=== PATIENT | male | born 1960 | race Caucasian/White ===

== ENCOUNTER 2017-02-22 21:01 | Emergency (ER) | payer MEDICAID ==
[~2017-02-22] VITALS: Ht 165.1 cm; Wt 77.3 kg
[~2017-02-22 21:01] MED LIST: HYDR-4446 PO; METF500T PO
[2017-02-22 21:16] VITALS: BP 151/89
--- NOTE | 2017-02-23 00:11 | NUR ---
PATIENT TAKEN TO BED 3
--- NOTE | 2017-02-23 00:19 | NUR ---
56Y M BIB FAMILY C/O RT. FLANK PAIN WITH N/V X 1 WK. HX. HTN, DM., LAP CHOLYCYSTECTOMY 1 YR AGO. PT DENIES ANY DIARHEA. PT BREATHING IS UNLABORED AND CLEAR BILAT. PT AAOX4. 9/10 PAIN .
--- NOTE | 2017-02-23 00:48 | NUR ---
Patient being evaluated by physician DR FERNANDO at bedside.
[2017-02-23 01:50] LABS: BASOPHILS # (AUTO) 0.1 K/uL (0.00-0.22); BASOPHILS % (AUTO) 1.4 % (0.0-2.0); EOSINOPHILS # (AUTO) 0.2 K/uL (0-0.4); EOSINOPHILS % (AUTO) 3.1 % (0.0-4.0); HEMOGLOBIN 11.4 g/dL (12.0-18.0); LYMPHOCYTES # (AUTO) 1.7 K/uL (2.0-11.5); LYMPHOCYTES % (AUTO) 34.2 % (20.5-51.1); MEAN CORPUSCULAR HEMOGLOBIN 29 pg (27-31); MEAN CORPUSCULAR HGB CONC 33 g/dL (33-37); MEAN CORPUSCULAR VOLUME 87 fL (80-94); MONOCYTES # (AUTO) 0.5 K/uL (0.8-1.0); MONOCYTES % (AUTO) 9.5 % (1.7-9.3); NEUTROPHILS # (AUTO) 2.6 K/uL (1.8-7.7); NEUTROPHILS % (AUTO) 51.8 % (42.2-75.2); PLATELET COUNT (AUTO) 167 K/uL (140-450); RED BLOOD CELL COUNT(AUTO) 3.92 MIL/uL (4.20-6.10); RED CELL DISTRIBUTION WIDTH 13.1 % (11.6-13.7); WHITE BLOOD COUNT (AUTO) 5.1 K/uL (4.8-10.8)
[2017-02-23 02:09] LABS: ALBUMIN 3.5 g/dL (3.4-5.0); ANION GAP 11.4 (8-16); CALCIUM 8.7 mg/dL (8.5-10.1); CARBON DIOXIDE 26.2 mmol/L (21-32); CREATININE 1.2 mg/dL (0.7-1.3); POTASSIUM 4.6 mmol/L (3.5-5.1); TOTAL BILIRUBIN 0.3 mg/dL (0.0-1.0); TOTAL PROTEIN, SERUM 6.5 g/dL (6.4-8.2)
[2017-02-23] MEDS ORDERED: HYDROmorphone 1 MG/ML AMP IVP ONE (03:15)
[2017-02-23] MEDS: oxyCODONE/APAP 5/325 MG 1 TAB TAB PO ONE (03:30)
[2017-02-23 03:40] VITALS: BP 143/74
--- NOTE | 2017-02-23 03:40 | NUR ---
Patient discharged with v/s stable. Written and verbal after care instructions given and explained. Patient alert, oriented and verbalized understanding of instructions. Ambulatory with steady gait. All questions addressed prior to discharge. ID band removed. Patient advised to follow up with PMD. Rx of [place] and Motrin given. Patient educated on indication of medication including possible reaction and side effects. Opportunity to ask questions provided and answered.
== END 2017-02-23 03:40 | disposition home or self-care (01) ==
LOC: MED 21:01
DX: K59.00 Constipation, unspecified (principal); N40.0 Benign prostatic hyperplasia without lower urinary tract symptoms; E11.9 Type 2 diabetes mellitus without complications; I10 Essential (primary) hypertension; Z90.49 Acquired absence of other specified parts of digestive tract; Z79.84 Long term (current) use of oral hypoglycemic drugs; Z79.899 Other long term (current) drug therapy
CPT/HCPCS: 36415; 80053; 81002; 82948; 85025; 99285

== ENCOUNTER 2018-06-16 18:16 | Emergency (ER) | payer MEDICAID ==
[~2018-06-16] VITALS: Ht 167.6 cm; Wt 75.3 kg
[~2018-06-16 18:16] MED LIST changes: +ACET-8386 PO; -HYDR-4446 PO
[2018-06-16 18:36] VITALS: BP 151/85
[2018-06-16] MEDS: KETOROLAC 30 MG/ML VIAL IVP ONE (19:47)
[2018-06-16] MEDS: ONDANSETRON 4 MG/2 ML VIAL IVP ONE (19:48)
[2018-06-16 20:05] LABS: APPEARANCE,URINE CLEAR (CLEAR); BILIRUBIN,URINE NEGATIVE (NEGATIVE); BLOOD, URINE NEGATIVE (NEGATIVE); COLOR,URINE YELLOW (YELLOW); LEUKOCYTE ESTERASE ,URINE NEGATIVE (NEGATIVE); NITRITE, URINE NEGATIVE (NEGATIVE); PH,URINE 6.5 (5.0-9.0); UGLUCOSE >=1000 (NEGATIVE)
[2018-06-16 20:25] LABS: BASOPHILS % (AUTO) 0.4 % (0.0-2.0); EOSINOPHILS # (AUTO) 0.1 K/uL (0-0.4); EOSINOPHILS % (AUTO) 2.1 % (0.0-4.0); HEMATOCRIT 37.9 % (36-52); LYMPHOCYTES # (AUTO) 1.5 K/uL (2.0-11.5); LYMPHOCYTES % (AUTO) 29.9 % (20.5-51.1); MEAN CORPUSCULAR HEMOGLOBIN 30 pg (27-31); MEAN CORPUSCULAR HGB CONC 34 g/dL (33-37); MONOCYTES # (AUTO) 0.4 K/uL (0.8-1.0); MONOCYTES % (AUTO) 8.9 % (1.7-9.3); NEUTROPHILS # (AUTO) 2.9 K/uL (1.8-7.7); NEUTROPHILS % (AUTO) 58.7 % (42.2-75.2); PLATELET COUNT (AUTO) 157 K/uL (140-450); RED BLOOD CELL COUNT(AUTO) 4.31 MIL/uL (4.20-6.10); RED CELL DISTRIBUTION WIDTH 14.1 % (11.6-13.7); WHITE BLOOD COUNT (AUTO) 4.9 K/uL (4.8-10.8)
[2018-06-16 20:30] LABS: ANION GAP 14.8 (8-16); CARBON DIOXIDE 24.5 mmol/L (21-32); POTASSIUM 4.3 mmol/L (3.5-5.1)
[2018-06-16 20:32] LABS: CREATININE 1.2 mg/dL (0.7-1.3); TOTAL BILIRUBIN 0.3 mg/dL (0.0-1.0)
[2018-06-16 20:33] LABS: ALBUMIN 3.4 g/dL (3.4-5.0)
[2018-06-16] MEDS: NACL 0.9% 1,000 ML IV ONE (20:54)
[2018-06-16] MEDS: INSULIN REGULAR, HUMAN 100 UNIT/ML VIAL SUBQ ONE (20:55)
[2018-06-16 22:03] VITALS: BP 148/87
== END 2018-06-16 22:03 | disposition home or self-care (01) ==
LOC: MED 18:16
DX: R11.0 Nausea (principal); R10.9 Unspecified abdominal pain; E11.9 Type 2 diabetes mellitus without complications; I10 Essential (primary) hypertension; Z90.49 Acquired absence of other specified parts of digestive tract; Z79.84 Long term (current) use of oral hypoglycemic drugs
CPT/HCPCS: 36415; 74176; 80053; 81003; 82948; 83690; 85025; 96372; 96374; 96375; 99284; J1815; J1885; J2405; 96361; J7030

== ENCOUNTER 2019-04-11 15:06 | Emergency (ER) | payer SELFPAY ==
[~2019-04-11] VITALS: Ht 165.1 cm; Wt 74.1 kg
[2019-04-11 15:22] VITALS: BP 112/78
--- NOTE | 2019-04-11 16:24 | NUR ---
PATIENT AMBULATED TO ER BED 8
--- NOTE | 2019-04-11 16:52 | NUR ---
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
--- NOTE | 2019-04-11 17:08 | NUR ---
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
[2019-04-11] MEDS ORDERED: KETOROLAC 30 MG/ML VIAL IVP ONE (18:20)
[2019-04-11] MEDS ORDERED: NACL 0.9% 1,000 ML IV ONE (18:20)
[2019-04-11] MEDS ORDERED: KETOROLAC 60 MG/2 ML VIAL IM ONE (18:20)
[2019-04-11 18:56] LABS: BASOPHILS % (AUTO) 0.4 % (0.0-2.0); EOSINOPHILS # (AUTO) 0.1 K/uL (0-0.4); EOSINOPHILS % (AUTO) 1.4 % (0.0-4.0); HEMATOCRIT 35.9 % (36-52); HEMOGLOBIN 12.1 g/dL (12.0-18.0); LYMPHOCYTES # (AUTO) 1.1 K/uL (2.0-11.5); LYMPHOCYTES % (AUTO) 14.4 % (20.5-51.1); MEAN CORPUSCULAR HEMOGLOBIN 30 pg (27-31); MEAN CORPUSCULAR HGB CONC 34 g/dL (33-37); MONOCYTES # (AUTO) 0.7 K/uL (0.8-1.0); NEUTROPHILS # (AUTO) 5.8 K/uL (1.8-7.7); NEUTROPHILS % (AUTO) 74.8 % (42.2-75.2); PLATELET COUNT (AUTO) 128 K/uL (140-450); RED BLOOD CELL COUNT(AUTO) 3.99 MIL/uL (4.20-6.10); RED CELL DISTRIBUTION WIDTH 14.6 % (11.6-13.7); WHITE BLOOD COUNT (AUTO) 7.7 K/uL (4.8-10.8)
--- NOTE | 2019-04-11 19:12 | NUR ---
RECEIVED REPORT FROM JASON HENRIQUEZ. PT LAYING IN BED. AT BEDSIDE.
[2019-04-11 19:25] LABS: ALBUMIN 3.8 g/dL (3.4-5.0); ANION GAP 14.5 (8-16); ASPARTATE AMINOTRANSFERASE 13 U/L (15-37); CARBON DIOXIDE 24.8 mmol/L (21-32); CHLORIDE 98 mmol/L (98-107); CREATININE 1.2 mg/dL (0.7-1.3); GFR ARICAN-AMERICAN 80 mL/min (>90); GLUCOSE 396 mg/dL (74-106); POTASSIUM 5.3 mmol/L (3.5-5.1); SODIUM SERUM 132 mmol/L (136-145); TOTAL BILIRUBIN 0.7 mg/dL (0.0-1.0); UREA NITROGEN, BLOOD 22 mg/dL (7-18)
[2019-04-11] MEDS ORDERED: MECLIZINE 25 MG TAB PO STA (19:55)
[2019-04-11] MEDS ORDERED: INSULIN NPH HUM/REG INSULIN HM 100 UNIT/ML 10 ML VIAL SUBQ STA (19:59)
[2019-04-11 20:50] LABS: ACETONE, SERUM NEGATIVE (NEGATIVE)
[2019-04-11 21:53] LABS: ANION GAP 14.8 (8-16); CARBON DIOXIDE 21.9 mmol/L (21-32); CREATININE 1.2 mg/dL (0.7-1.3); POTASSIUM 4.7 mmol/L (3.5-5.1)
--- NOTE | 2019-04-11 22:00 | NUR ---
PT LAYING IN BED NO SIGNS OF DISTRESS. STATES HE FEELS BETTER. AT BEDSIDE. WILL CONITNUE TO MONITOR
[2019-04-12 00:33] VITALS: BP 116/74
== END 2019-04-12 00:33 | disposition home or self-care (01) ==
LOC: MED 15:06
DX: R42 Dizziness and giddiness (principal); M54.2 Cervicalgia; R10.11 Right upper quadrant pain; R51 Headache; E78.5 Hyperlipidemia, unspecified; I10 Essential (primary) hypertension; E11.9 Type 2 diabetes mellitus without complications; Z79.84 Long term (current) use of oral hypoglycemic drugs; Z79.1 Long term (current) use of non-steroidal anti-inflammatories (NSAID); Z86.73 Personal history of transient ischemic attack (TIA), and cerebral infarction without residual deficits
CPT/HCPCS: 36415; 71045; 80048; 80053; 82009; 82553; 82948; 83735; 85025; 93005; 96361; 96374; 99284; J1815; J1885; J7030; J8597; Q0092; 81002